=== PATIENT | female | born 1970 | race Caucasian/White ===

== ENCOUNTER 2022-02-19 10:20 | Emergency (ER) | payer SELFPAY ==
[2022-02-19 10:21] VITALS: BP 124/94; PULSE 77; RESP 19; TEMP 36.6; O2SAT 97; BMI 36.3
--- NOTE | 2022-02-19 10:43 | EKG12_ITS ---
Test Reason : CHEST PAIN Blood Pressure : / mmHG Vent. Rate : 073 BPM Atrial Rate : 073 BPM P-R Int : 150 ms QRS Dur : 080 ms QT Int : 382 ms P-R-T Axes : 027 -08 -05 degrees QTc Int : 420 ms Normal sinus rhythm Minimal voltage criteria for LVH, may be normal variant ( R in aVL ) Inferior infarct , age undetermined Cannot rule out Anterior infarct , age undetermined , cannot be excluded Abnormal ECG Confirmed by QUINCY MCGARRY, MELINDA ([id number]), newspaper editor DORIS FUENTES ([id number]) on 02/21/2022 9:21:34 AM Referred By: SILAS Confirmed By:MELINDA MATHEW MD
--- NOTE | 2022-02-19 10:43 | ED.VIS.CHEST ---
HPI History of Present Illness Chief Complaint: Chest Pain Narrative Narrative: 51-year-old female with past medical history of hypertension, Eliane's, presents with elevated blood pressure, and pain/pressure in between her shoulder blades that she has had since yesterday. She states that she recently returned home from a trip and last evening at 6 PM, approximately 16 hours ago, she has had constant pressure between her shoulder blades. It was uncomfortable for her, but she went to work today at the [employer] [facility], and told her coworker that she did not feel well. They took her blood pressure and it was elevated at 190+ systolically. She states she had taken her antihypertensive medications this morning. The PA took her blood pressure and it was elevated over 200. He administered 4 baby aspirin and sent her to the emergency department for evaluation. She states she was mildly nauseated but had no vomiting. Additionally she felt short of breath. She denies any diaphoresis, but states that she may be perimenopausal and have hot flashes. Said problems with bilateral leg swelling since she moved here from [place]. She is concerned mainly because she has strong family history of early coronary artery disease in her father and mother. Father had first heart attack less than age 55. She presents because of her reported elevated blood pressure, the pressure sensation between her shoulder blades. [facility] Medical History Cholecystectomy planned Diabetes Hammer toe Eliane's disease Hypertension Allergy/AdvReac Type Severity Reaction Status Date / Time morphine AdvReac Nausea Verified 02/19/22 10:29 Sulfa (Sulfonamide AdvReac Nausea Verified 02/19/22 10:29 Antibiotics) Surgical History H/O knee surgery H/O: hysterectomy History of lumpectomy of left breast Social History Smoking Status: Never smoker ROS ROS ED ROS Narrative Constitutional: No fever, no chills. HEENT: No sore throat. No neck pain. No loss of vision. No rhinorrhea. Cardiovascular: No chest pain, blood pressure sensation between shoulder blades. No palpitations. Months worth of bilateral pedal edema. Respiratory: No cough, positive shortness of breath. Abdominal: No abdominal pain. Positive nausea. No vomiting. Genitourinary: No dysuria. No hematuria. Musculoskeletal: No myalgias. No arthralgias. Neurologic: No headaches. No dizziness. No lightheadedness. Skin: No rash. No change in color. Psychiatric: No depression. No anxiety. EXAM Physical Exam Narrative Exam Narrative: Afebrile. Vital signs noted. HEENT: Normocephalic. Atraumatic. PERRL, EOMI. Neck soft and supple. No point tenderness or step off. Cardiovascular: Regular rate and rhythm. No murmurs, rubs, or gallops appreciated. Respiratory: No tachypnea. Lungs clear to auscultation bilaterally. Gastrointestinal: Abdomen soft, nontender, with normoactive bowel sounds. No rebound or guarding. Neurological: Awake. Alert. Nonfocal, nonlateralizing. Skin: No rash. Normal color. No pallor. Musculoskeletal: No pedal edema. Full range of motion extremities. Const Vital Signs: 02/19/22 10:21 02/19/22 10:32 02/19/22 10:49 Temperature 97.9 F Temperature Source Temporal Pulse Rate 77 Respiratory Rate 19 H Respiratory Effort Normal Respiratory Pattern Normal Blood Pressure 124/94 H Blood Pressure Mean 104 Pulse Ox 97 98 Oxygen Delivery Method Room Air Room Air 02/19/22 11:30 Temperature Temperature Source Pulse Rate 74 Respiratory Rate 16 Respiratory Effort Respiratory Pattern Blood Pressure 144/81 H Blood Pressure Mean 102 Pulse Ox 97 Oxygen Delivery Method Room Air Heart Score History: Slightly/Non-Suspicious ECG: Normal Age: >45 - <65 years Risk Factors: >/= 3 Risk Factors or History of CAD Troponin: </= Normal Limit Score: 3 MDM MDM MDM Narrative Medical decision making narrative: Chest pain work-up was pursued. She had already received baby aspirin at her place of work. EKG interpreted by myself demonstrates normal sinus rhythm at 73 bpm without ectopy or acute ST changes. No STEMI. Her chest pain work-up is grossly unremarkable with normal white count, normal hemoglobin, normal platelet count, D-dimer negative at 0.39. Electrolyte panel is grossly unremarkable except for elevated glucose of 395 with a normal anion gap of 9. Initial high-sensitivity troponin is 4. Repeat is 5 for a delta troponin of 1. Chest x-ray interpreted by myself shows no acute process. At this point in time, her blood pressure is slightly elevated and borderline at 144/81. TIERRA can be discharged safely home with follow-up. She is to keep a log of her blood pressures and continue her medication. She will follow-up with her primary care provider. Return instructions to the emergency department were reviewed. Disposition is discharged home in stable condition. Lab Data Attestation: I reviewed the patient's lab results. Labs: Laboratory Results - last 24 hr 02/19/22 02/19/22 02/19/22 10:30 10:30 10:30 WBC 8.1 RBC 4.28 Hgb 13.1 Hct 38.6 MCV 90.2 MCH 30.6 MCHC 33.9 RDW Std Deviation 39.5 RDW Coeff of [place] 12.1 Plt Count 280 MPV 10.9 Immature Gran % (Auto) 0.400 Neut % (Auto) 60.5 Lymph % (Auto) 32.3 [place] % (Auto) 4.2 Eos % (Auto) 2.1 Baso % (Auto) 0.5 Absolute Neuts (auto) 4.9 Absolute Lymphs (auto) 2.62 Nucleated RBC % 0 D-Dimer Quant (PE/DVT) 0.36 Sodium 138 Potassium 3.5 Chloride 102 Carbon Dioxide 27.0 Anion Gap 9 BUN 17 Creatinine 0.97 Estim Creat Clear Calc 62.44 Est GFR (MDRD) Af Amer 78 Est GFR (MDRD) Non-Af 64 BUN/Creatinine Ratio 17.5 Glucose 395 H Calcium 9.2 Troponin I High Sens 4 02/19/22 13:04 WBC RBC Hgb Hct MCV MCH MCHC RDW Std Deviation RDW Coeff of [place] Plt Count MPV Immature Gran % (Auto) Neut % (Auto) Lymph % (Auto) [place] % (Auto) Eos % (Auto) Baso % (Auto) Absolute Neuts (auto) Absolute Lymphs (auto) Nucleated RBC % D-Dimer Quant (PE/DVT) Sodium Potassium Chloride Carbon Dioxide Anion Gap BUN Creatinine Estim Creat Clear Calc Est GFR (MDRD) Af Amer Est GFR (MDRD) Non-Af BUN/Creatinine Ratio Glucose Calcium Troponin I High Sens 5 Radiography Diagnostic Testing: Clinical Impression(s) from Imaging Studies Chest X-Ray 02/19/22 10:54 IMPRESSION: Borderline cardiomegaly. The lungs are clear. Dextroscoliosis. Electronically Signed: Sukhjinder Clayton MD at 11:16 EDT , Discharge Plan Triage Chief Complaint: Chest Pain ED Provider: Chintan Guerrero Dx/Rx/DC Orders Clinical Impression: Chest pain, Elevated blood pressure reading in office with diagnosis of hypertension Instructions: Controlling High Blood Pressure, ED Chest Pain, Uncertain Cause, ED High Blood Pressure Hypertension Stand Alone Forms: ED Work / School Excuse Primary Care Provider: GLORY LEONG Referrals: GLORY LEONG [Other] - 3-5 Days Disposition Disposition: Home, Self Care
--- NOTE | 2022-02-19 10:46 | NURSING ---
NO OLD EKGS
[2022-02-19 10:49] VITALS: O2SAT 98
--- NOTE | 2022-02-19 10:54 | RAD_ITS ---
STUDY: X-RAY CHEST REASON FOR EXAM: Female, 51 years old. Chest pain TECHNIQUE: Single AP portable view of the chest. COMPARISON: None. FINDINGS: EKG electrodes are seen. The lungs are clear and expanded. There is no demonstrated pleural abnormality. There is borderline cardiomegaly. Normal mediastinum and theodore. Normal visualized pulmonary arteries. Normal visualized aortic arch and descending thoracic aorta. There is a dextroscoliosis of the thoracic spine. Normal visualized ribs, clavicles, and shoulders. There is no demonstrated abnormality of the visualized soft tissue structures of the upper abdomen. RAD/Chest 1 View (Portable) IMPRESSION: Borderline cardiomegaly. The lungs are clear. Dextroscoliosis. Electronically Signed: Sukhjinder Clayton MD at 11:16 EDT ,
[2022-02-19 10:58] LABS: Absolute Lymphocyte Count 2.62 X10^3/uL (0.83-4.51); Absolute Neutrophil Count 4.9 X10^3/uL (2.0-7.7); Basophil# 0.04 X10^3/uL; Basophil% 0.5 % (0-1); Eosinophil# 0.17 X10^3/uL; Eosinophils% 2.1 % (0-5); Hematocrit 38.6 % (37-47); Hemoglobin 13.1 g/dL (12.0-15.0); Lymphocyte # 2.62 X10^3/ul (0.83-4.51); Lymphocyte % 32.3 % (19-41); Mean Corp Hgb Conc 33.9 g/dL (32-36); Mean Corpuscular Hgb 30.6 pg (27.0-32.0); Mean Corpuscular Volume 90.2 fL (81-99); Mean Platelet Vol. 10.9 fl (6.2-12.0); Monocyte# 0.34 X10^3/uL; Monocyte% 4.2 % (0-10); NRBC Flagged by Analyzer 0 % (0-5); Neutrophil % 60.5 % (47-70); Platelet Count 280 K/mm3 (150-450); RBC Distribution Width CV 12.1 % (11.6-14.6); RBC Distribution Width SD 39.5 fl (35.1-43.9); Red Blood Count 4.28 M/mm3 (4.2-5.4); White Blood Count 8.1 K/mm3 (4.4-11.0)
[2022-02-19 11:09] LABS: D-Dimer Quantitative (DVT/PE) 0.36 FEU/ug/m (0.27-0.49)
[2022-02-19 11:13] LABS: Anion Gap 9 (5-15); BUN 17 mg/dL (7-18); BUN/Creat Ratio 17.5 RATIO (10-20); Calcium,Total 9.2 mg/dL (8.5-10.1); Chloride 102 mmol/L (98-107); Creatinine, Serum 0.97 mg/dL (0.55-1.02); EST Glomerular Filtration Rate 64 mL/min (>60); Est Glom Filt Rate - Afr Amer 78 mL/min (>60); Estimated Creatinine Clearance 62.44 ml/min; Glucose 395 mg/dL (74-106); Potassium 3.5 mmol/L (3.5-5.1); Sodium Level 138 mmol/L (136-145); Troponin-I HS (w/2H Reflex) 4 pg/mL (3.0-54.0)
[2022-02-19 11:30] VITALS: BP 144/81; PULSE 74; RESP 16; O2SAT 97
[2022-02-19 12:53] LABS: Reflex Troponin-HS? (from REC) Y
[2022-02-19 13:26] LABS: Troponin-I HS 5 pg/mL (3.0-54.0)
[2022-02-19 14:10] VITALS: BP 148/79; PULSE 77; RESP 17; O2SAT 97
== END 2022-02-19 14:21 | disposition home or self-care (01) ==
PROVIDERS: Emergency Provider Emergency Medicine; Visit Provider Emergency Medicine
DX: R07.9 Chest pain, unspecified (principal); R03.0 Elevated blood-pressure reading, without diagnosis of hypertension
CPT/HCPCS: 71045; 80048; 84484; 85025; 85379; 93005; 99285; A4216

== ENCOUNTER → 2022-03-22 | Outpatient (CLI) | payer OTHER, SELFPAY ==
[2022-03-22 15:33] LABS: Mucous, Urine 0 SEEN /hpf (<or=2+)
[2022-03-22 15:57] LABS: Color, Urine Yellow (Yellow); Glucose, Dipstick 1000 mg/dl (Normal); Ketone-Dipstick 5 mg/dl (Negative); Leukocyte Esterase-Dipstick 100 /ul (Negative); Nitrite-Dipstick Positive (Negative); Occult Blood-Urine 25 /ul (Negative); Protein-Dipstick 30 mg/dl (Negative); Specific Gravity, Urine 1.025 (1.002-1.030); Urine Clarity Sl. Cloudy (Clear); Urine Urobilinogen 1 mg/dl (Normal)
[2022-03-22 16:01] LABS: Urine Bilirubin Dipstick 1 mg/dL (Negative)
[2022-03-22 16:26] LABS: Red Blood Cells-Urine 0-5 SEEN /hpf (0-5); Squamous Epithelial Cells - UA 0-5 SEEN /hpf (5-10); White Blood Cells 5-10 SEEN /hpf (0-5)
[2022-03-22 16:27] LABS: Bacteria 1+ /hpf (None Seen)
== END | disposition home or self-care (01) ==
LOC: LABSPEC 15:16
PROVIDERS: Visit Provider Physician Assistant
DX: R30.0 Dysuria (principal); R39.15 Urgency of urination
CPT/HCPCS: 81001; 87086; 87088; 87186

== ENCOUNTER → 2022-06-06 | Outpatient (CLI) | payer OTHER, SELFPAY ==
[2022-06-06 10:44] LABS: Anion Gap 6 (5-15); BUN 13 mg/dL (7-18); BUN/Creat Ratio 17.1 RATIO (10-20); Chloride 104 mmol/L (98-107); Creatinine, Serum 0.76 mg/dL (0.55-1.02); EST Glomerular Filtration Rate 85 mL/min (>60); Est Glom Filt Rate - Afr Amer 103 mL/min (>60); Free T3 2.7 pg/mL (2.18-3.98); Glucose 226 mg/dL (74-106); Potassium 4.1 mmol/L (3.5-5.1); Sodium Level 140 mmol/L (136-145); T4 Free Direct 1.09 ng/dL (0.76-1.46); Thyroid Stim Hormone (TSH) 1.87 uIU/mL (0.358-3.74)
== END | disposition home or self-care (01) ==
PROVIDERS: PCP Nurse Practitioner Family; Referring Provider Nurse Practitioner Family; Visit Provider Nurse Practitioner Family
DX: I10 Essential (primary) hypertension (principal); E05.00 Thyrotoxicosis with diffuse goiter without thyrotoxic crisis or storm
CPT/HCPCS: 36415; 80048; 84439; 84443; 84481